=== PATIENT | female | born 1975 | race African-American/Black ===

== ENCOUNTER → 2016-11-25 | Outpatient (CLI) | payer BC ==
[~2016-11-25] MED LIST: ASP81TEC PO; GLIM4TAB PO; INDO25CA PO; INSU100I10 SQ; INSU100V6 SQ; LRT10T PO; MTF500T PO
== END ==
LOC: RAD 07:30
PROVIDERS: ATTEND Nurse Practitioner
DX: Z12.31 Encounter for screening mammogram for malignant neoplasm of breast (principal)
CPT/HCPCS: 77067

== ENCOUNTER → 2018-01-05 | Outpatient (CLI) | payer BC ==
[~2018-01-05] MED LIST changes: -INDO25CA PO; +INDO25CA15 PO
--- NOTE | 2018-01-07 13:48 | RADIOLOGY REPORT ---
NAME: STACY ROBERSON [facility] REC#: [id number] PT STATUS: REG CLI : 1975 PHYSICIAN: ROBI LR SS ADMIT DATE: 01/05/18/RAD CORRECTED Signed Date of Exam:01/05/18 CT SINUS COMPLETE WO PROCEDURE: CT sinuses without contrast TECHNIQUE: Multiple contiguous axial images were obtained through the sinuses without the use of intravenous contrast. Coronal and sagittal reformations were then performed. INDICATION: Allergic rhinitis. The frontal sinuses clear. Ethmoid air cells and sphenoid sinus are clear. Bilateral maxillary sinuses are clear. The mastoid air cells are well aerated. No mucosal thickening or air-fluid levels are seen. Ostiomeatal complexes appear patent. The upper portion of nasal septum shows some slight deviation to the right. IMPRESSION: No evidence of sinusitis. Dictated by: Dictated on workstation # [id number] Dict: 01/05/18 0853 Trans: 01/05/18 1543 [facility] [id number] Interpreted by: PONCHO WHEELER MD Electronically signed by: PONCHO WHEELER MD 01/05/18 1543 [facility]
== END ==
LOC: RAD 08:02
PROVIDERS: ATTEND Otolaryngology Facial Plastic Surgery
DX: J30.9 Allergic rhinitis, unspecified (principal)
CPT/HCPCS: 70486

== ENCOUNTER → 2018-03-15 | Outpatient (CLI) | payer BC ==
--- NOTE | 2018-03-16 20:31 | Diagnostic Imaging Report ---
EXAMINATION: Digital mammogram bilateral screening with 3D tomosynthesis. INDICATION: Screening. COMPARISON: This study was compared to the prior exam of 11/25/2016. At this time, there are no current complaints. The current study was also evaluated with A Computer Aided Detection (CAD) system. FINDINGS: There are scattered fibroglandular densities in both breasts which could obscure a lesion. Overall, there does not appear to have been any significant change when compared to the prior exam. No primary or secondary sign of malignancy is noted. 3D tomographic images fail to show any sign of malignancy. IMPRESSION: There is no radiographic evidence for malignancy. ACR BI-RADS Category 1: Negative. Result letter will be mailed to the patient. Note: At least 10% of breast cancer is not imaged by mammography. Dictated on workstation # [id number]
== END ==
LOC: RAD 08:07
PROVIDERS: ATTEND Nurse Practitioner
DX: Z12.31 Encounter for screening mammogram for malignant neoplasm of breast (principal)
CPT/HCPCS: 77067

== ENCOUNTER → 2019-03-22 | Outpatient (CLI) | payer BC ==
--- NOTE | 2019-03-27 09:29 | Diagnostic Imaging Report ---
INDICATION: Routine screening. Comparison is made with prior mammogram 03/15/2018 and 11/25/2016. 2-D and 3-D bilateral screening mammography was performed with CAD. Scattered fibroglandular densities are identified bilaterally. A nodular density in the superior left breast mid depth is seen on the left MLO view. This may be centrally located on the CC view. Additional views are recommended. Right breast is unremarkable. No suspicious calcifications are seen. Axillae are unremarkable. IMPRESSION: BI-RADS 0 Left breast density. Additional views are recommended for further evaluation. ACR BI-RADS Category 0: Incomplete. (Needs additional imaging evaluation). Result letter will be mailed to the patient. Note: At least 10% of breast cancer is not imaged by mammography. Dictated by: Dictated on workstation # [id number]
== END ==
LOC: RAD 11:10
PROVIDERS: ATTEND Nurse Practitioner
DX: Z12.31 Encounter for screening mammogram for malignant neoplasm of breast (principal); Z01.419 Encounter for gynecological examination (general) (routine) without abnormal findings; N95.2 Postmenopausal atrophic vaginitis
CPT/HCPCS: 77067

== ENCOUNTER → 2019-04-06 | Outpatient (CLI) | payer BC ==
--- NOTE | 2019-04-06 18:50 | Diagnostic Imaging Report ---
INDICATION: Abnormal mammogram. EXAMINATION: Unilateal diagnostic left breast ultrasound, limited. FINDINGS: Screening mammogram performed on 03/22/2019 noted a small nodular density in the superior aspect of the left breast. This finding does not seem as conspicuous on the diagnostic mammogram performed prior to this exam. On this exam, there are two small 5 and 3 mm avascular fairly well-circumscribed hypoechoic lesions in the 11 o'clock position of the breast, roughly 7 cm from the nipple. I suspect that these are small benign cysts. These may well correspond to the density seen on the mammogram. There is no solid mass to suggest malignancy. Even so, it may prove worthwhile to have a short-term (six month) follow-up mammogram and ultrasound exam of the left breast for continued evaluation. IMPRESSION: There is no solid mass to suggest malignancy. Recommendations as above. ACR BI-RADS Category 3: Probably benign findings. Result letter will be mailed to the patient. Note: At least 10% of breast cancer is not imaged by mammography. Dictated by: Dictated on workstation # [id number]
--- NOTE | 2019-04-07 07:14 | Diagnostic Imaging Report ---
Diagnostic left mammogram. Indication: Abnormal screening mammogram. The recent screening mammogram performed on 03/22/2019 noted a small nodular density in the superior aspect of the left breast at middle depth. This finding was best visualized on the CC view. This density is not as conspicuous on the compression MLO view and it cannot be identified on the true lateral or CC views. I suspect that this finding is related to either superimposition or to a benign process. I would recommend that ultrasound be performed for further study. Impression: Ultrasound would be recommended for further evaluation of the left breast. ACR BI-RADS Category 0: Incomplete. (Needs additional imaging evaluation). Result letter will be mailed to the patient. Note: At least 10% of breast cancer is not imaged by mammography. Dictated by: Dictated on workstation # [id number]
== END ==
LOC: RAD 13:34
PROVIDERS: ATTEND Nurse Practitioner
DX: R92.8 Other abnormal and inconclusive findings on diagnostic imaging of breast (principal)
CPT/HCPCS: 76642

== ENCOUNTER → 2023-01-05 | Outpatient (CLI) | payer OTHER, BC ==
[~2023-01-05] MED LIST changes: -INDO25CA15 PO; +INDO25CA99 PO
== END ==
LOC: CARD 09:08
PROVIDERS: ATTEND Internal Medicine Cardiovascular Disease
DX: R07.9 Chest pain, unspecified (principal)
CPT/HCPCS: 93306

== ENCOUNTER → 2023-02-08 | Outpatient (CLI) | payer OTHER, BC ==
[~2023-02-08] VITALS: Ht 162 cm; Wt 84.0 kg
[~2023-02-08] MED LIST changes: +CATHETER FLUSH 10 ML SYR IVP PRN
[2023-02-08 08:57] VITALS: BP 161/93
--- NOTE | 2023-02-08 12:20 | Cardiology Stress Test Report ---
Stress Test Report Date of Procedure/Referring: Date of Procedure: Feb 08, 2023 PCP Padma Marques Aprn Admitting Physician Admitting Physician: Attending Physician: Neema Neri MD Baseline Heart Rate: 81 Baseline Blood Pressure: Blood Pressure Systolic: 161 Blood Pressure Diastolic: 93 Vital Signs Date Time Temp Pulse Resp B/P (MAP) Pulse Ox O2 Delivery O2 Flow Rate FiO2 02/08/23 08:57 88 161/93 (115) Baseline Vital Signs Vital Signs Date Time Temp Pulse Resp B/P (MAP) Pulse Ox O2 Delivery O2 Flow Rate FiO2 02/08/23 08:57 88 161/93 (115) Baseline EKG: Baseline EKG: NSR Summary: After explaining the procedure and details to the patient, she signed the consent and was brought to the stress nuclear laboratory. Patient exercised on standard Julius protocol, EKG, heart rate and blood pressure were monitored continuously, resting and stress doses of radio tracer were injected, imaging was acquired and reviewed in the short axis, horizontal long axis and vertical long axis views Patient was able to exercise for a total of 7 minutes on Julius protocol, METs 8.5 Maximum heart rate 161 Maximum blood pressure 198/79 Stress EKG, Minimal nondiagnostic changes Recovery EKG, Return to baseline TID: 1.08 SSS: 3 SDS: 3 EF: 58 Conclusion: Good exercise tolerance for 7 minutes on standard Julius protocol, 8.5 METS achieving maximum heart rate of 161 return to baseline during recovery Appropriate heart rate response to exercise with hypertensive response to exercise with peak blood pressure 198/79 return to baseline during recovery Artifacts with nondiagnostic EKG changes with exercise return to baseline during recovery Breast attenuation affecting the quality of the images, there is questionable reversible ischemia involving the mid to apical anterior wall and anterolateral wall Normal left ventricular size, ejection fraction 68% CC NEEMA Hernandez APRN, MD Feb 08, 2023 12:20
== END ==
LOC: CARD 07:33
PROVIDERS: ATTEND Internal Medicine Cardiovascular Disease
DX: R07.9 Chest pain, unspecified (principal)
CPT/HCPCS: 78452; 93017

== ENCOUNTER 2023-03-03 06:58 | Day surgery (SDC) | payer OTHER, BC ==
[2023-03-03] VITALS (17 sets, daily range): BP systolic 115–161; BP diastolic 69–102
[~2023-03-03] VITALS: Ht 165.1 cm; Wt 84.1 kg
[~2023-03-03 06:58] MED LIST changes: -CATHETER FLUSH 10 ML SYR IVP PRN
[2023-03-03] MEDS ORDERED: HEParin (CATH LAB) 2,000 ML IV ONE (07:03)
[2023-03-03] MEDS ORDERED: NS IV 1000 ML 1,000 ML ONE (07:03)
[2023-03-03] MEDS ORDERED: LIDOCAINE 1% INJ 20 ML VIAL ONE (07:03)
[2023-03-03] MEDS ORDERED: NS IV 1000 ML 1,000 ML IV SCH (07:30)
[2023-03-03 07:50] LABS: HEMATOCRIT 43 % (35-52); HEMOGLOBIN 14.2 g/dL (11.5-16.0); MEAN CORPUSCULAR HEMOGLOBIN 29 pg (25-34); MEAN CORPUSCULAR HGB CONC 33 g/dL (32-36); MEAN CORPUSCULAR VOLUME 87 fL (80-99); MEAN PLATELET VOLUME 10.4 fL (9.0-12.2); PLATELET COUNT 360 10^3/uL (130-400); WHITE BLOOD COUNT 6.7 10^3/uL (4.3-11.0)
[2023-03-03 07:57] LABS: CLARITY,URINE CLEAR; COLOR,URINE YELLOW; GLUCOSE, URINE (UA) 2+ (NEGATIVE); PH,URINE 5.5 (5-9); PROTEIN,URINE 1+ (NEGATIVE)
[2023-03-03 07:58] LABS: BACTERIA,URINE TRACE /HPF; BILIRUBIN,URINE NEGATIVE (NEGATIVE); KETONES,URINE TRACE (NEGATIVE); LEUKOCYTE ESTERASE ,URINE NEGATIVE (NEGATIVE); NITRITE,URINE NEGATIVE (NEGATIVE); SQUAMOUS EPITHELIAL CELL,UR 0-2 /HPF; WBC,URINE RARE /HPF
[2023-03-03 08:01] LABS: PROTHROMBIN TIME PATIENT 13.6 SEC (12.2-14.7)
[2023-03-03 08:10] LABS: ALBUMIN 4.3 GM/DL (3.2-4.5); BILIRUBIN,TOTAL 0.3 MG/DL (0.1-1.0); CALCIUM 9.4 MG/DL (8.5-10.1); CREATININE SERUM 0.81 MG/DL (0.60-1.30); POTASSIUM 3.8 MMOL/L (3.6-5.0); TOTAL PROTEIN 7.6 GM/DL (6.4-8.2)
[2023-03-03] MEDS ORDERED: INSU100I10 SQ (08:16)
[2023-03-03] MEDS ORDERED: LEVO5TAB12 PO (08:16)
[2023-03-03] MEDS ORDERED: IBUP-30 PO (08:16)
[2023-03-03] MEDS ORDERED: DULA4.5P SQ (08:16)
[2023-03-03] MEDS ORDERED: PANT20TA18 PO (08:16)
[2023-03-03] MEDS ORDERED: CARB15DR OP (08:16)
--- NOTE | 2023-03-03 08:18 | Diagnostic Imaging Report ---
INDICATION: Cardiac disease. Compared 05/20/2015 FINDINGS: The lungs are clear. No failure, effusion or pneumothorax. IMPRESSION: Normal frontal chest Dictated by: Dictated on workstation # [id number]
--- NOTE | 2023-03-03 08:26 | Cardiac Procedure Note-CS/ASA ---
Pre-Procedure Note Pre-Op Procedure Note Date of Available H&P: Feb 08, 2023 Date H&P Reviewed: Mar 03, 2023 Time H&P Reviewed: 08:26 History & Physical: H&P Reviewed, Patient Examed, No changes noted Pre-Operative Diagnosis: CAD Moderate Sedation PreProcedure Time 08: ASA Score 3 Airway Lungs Heart ASA score ASA 1: a normal healthy patient ASA 2: a patient with a mild systemic disease (mid diabetes, controlled hypertension, obesity ASA 3: a patient with a severe systemic disease that limits activity (angina, COPD, prior Myocardial infarction) ASA 4: a patient with an incapacitating disease that is a constant threat to life (CHF, renal failure) ASA 5: a moribund patient not expected to survive 24 hrs. (ruptured aneurysm) ASA 6: a declared brain- patient whose organs are being harvested. For emergent operations, add the letter E after the classification Mallampati Classification Grade 3 Sedation Plan Analgesia, Amnesia, Plan communicated to team members, Discussed options with patient/fam, Discussed risks with patient/fam The patient is an appropriate candidate to undergo the planned procedure, sedation, and anesthesia. The patient immediately re-assessed prior to indication. NEEMA RAY MD Mar 03, 2023 08:26
[2023-03-03] MEDS ORDERED: MIDAZOLAM INJ 5 MG/5 ML VIAL ONE (08:34)
[2023-03-03] MEDS ORDERED: VERAPAMIL 5 MG/2 ML (CALAN) VIAL IV ONE (08:34)
[2023-03-03] MEDS ORDERED: fentaNYL INJECTION 100 MCG/2 ML VIAL ONE (08:34)
[2023-03-03] MEDS ORDERED: HEParin 1000 UNIT/ML (10ML VIAL) FOR BOLUS ONE (08:35)
[2023-03-03] MEDS ORDERED: NITRO DRIP 25000 MCG/D5W 250 ML IV ONE (08:35)
[2023-03-03] MEDS ORDERED: TICAGRELOR 90 MG TABLET (BRILINTA) PO ONE (09:39)
[2023-03-03] MEDS ORDERED: ASPIRIN 325 MG TABLET ONE (09:39)
[2023-03-03] MEDS ORDERED: PANTOPRAZOLE 20 MG TABLET PO PRN (09:45)
[2023-03-03] MEDS ORDERED: NON-FORMULARY MEDICATION 1 EA EA (Dulaglutide (Trulicity) 4.5 MG) SQ SCH (09:45)
--- NOTE | 2023-03-03 09:49 | Cardiac Cath Report ---
Cardiac Cath Report Physician (s)/Header Set Up Operator (s) Physician NEEMA RAY MD Pre-Procedure Diagnosis Pre-Procedure Diagnosis: CAD Post-Procedure Note Procedure Start Date: Mar 03, 2023 Name of Procedure: Left heart catheterization IFR to the LAD Stenting to the circumflex artery Stenting to the LAD Findings/Procedure Note PROCEDURE NOTE: 47-year-old lady with recurrent chest pain, had an abnormal stress test, has history of diabetes mellitus, hyperlipidemia, cardiac catheterization was advised. After explaining the procedure to the patient, all pros and cons were explained, all questions were answered. The patient signed the consent and then she was placed in the cardiac catheterization laboratory. Groin was prepped in SL fashion local anesthesia was used. Sheath placed in the right radial artery, Cresco catheter was advanced to the left ventricular cavity, pressure was measured, pullback LV to aorta was done, engaged the right coronary artery, I was unable to engage the left system, exchange the catheter and used Young left catheter and angiogram to the left coronary system was done. Patient had 95% stenosis in the distal circumflex artery and borderline 70% lesion in the LAD artery. EBU 3.5 guide was used Run-through wire was advanced to the circumflex artery and parked distally, predilatation with 2.5 x 20 mm trek balloon then Orsiro drug-eluting stent 2.5 x 18 mm deployed up to 2.6 mm with 0% residual stenosis in the circumflex artery The borderline lesion in the LAD was tested with IFR wire iFR was 0.88 Primary stenting with Orsiro 2.5 x 18 mm deployed under 14 farhan up to 2.7 mm. Angiogram showed 0% residual stenosis, IFR 0.91. At the end of the procedure the sheath was removed. FINDINGS: Hemodynamics LV 118/15, end-diastolic pressure of 15 Aorta 108/67 mean of 83 ANATOMY: Left Main is free of obstructive disease Left Anterior Descending has 70% mid LAD stenosis IFR 0.88, status post deployment of Orsiro 2.5 x 18 mm expanded to 2.7 mm with 0% residual stenosis Left Circumflex has 95% mid to distal lesion with successful balloon angioplasty and stenting using Orsiro 2.5 x 18 mm expanded to 2.65 mm with 0% residual stenosis Right Coronary Artery is codominant artery with a circumflex artery with no significant obstructive disease LV Gram was not done, pressure was measured PERCUTANEOUS INTERVENTION: LAD Pre stenosis 70%, IFR 0.88 Post Stenosis 0%, IFR 0.91 Pre YADI flow 2 Post YADI flow 3 Left circumflex artery Prestenosis 95% Post stenosis 0% Pre-YADI flow 2 Post YADI flow 3 Dominance codominance of the right coronary artery and circumflex artery CONCLUSION: Severe two-vessel coronary artery disease with severe mid LAD stenosis successful deployment of Orsiro 2.5 x 18 mm with no residual stenosis, severe mid to distal circumflex artery with deployment of Orsiro 2.5 x 18 mm with no residual stenosis Codominant circumflex and right artery system, nonobstructive disease otherwise Normal left ventricular end-diastolic pressure DISCUSSION AND RECOMMENDATION: Patient was loaded with aspirin and Brilinta, started on Lipitor 40 mg daily, pantoprazole Anesthesia Type: Conscious Sedation Estimated blood loss (mL): 20 ml Contrast Amount: 85 ml Total Radiation Dose: 621 mGy Post-Procedure Diagnosis Post-operative diagnosis: Chest pain Coronary artery disease Hypertension Hyperlipidemia NEEMA RAY MD Mar 03, 2023 09:49
[2023-03-03] MEDS ORDERED: ARTIFICIAL TEARS Ophth solution 0.4 ML UNIT DOSE OU PRN (10:15)
[2023-03-03] MEDS ORDERED: LORATADINE 10 MG TABLET PO PRN (10:30)
[2023-03-03] MEDS: NS IV 1000 ML 1,000 ML IV SCH (13:35)
[2023-03-03] MEDS ORDERED: IBUPROFEN 200 MG TABLET PO PRN (14:30)
[2023-03-03] MEDS ORDERED: ACETAMINOPHEN 500 MG TABLET PO PRN (14:45)
[2023-03-03] MEDS ORDERED: PROMETHAZINE INJ 25 MG/ML VIAL IVP PRN (15:30)
[2023-03-03] MEDS: TICAGRELOR 90 MG TABLET (BRILINTA) PO SCH (21:21)
[2023-03-04 04:24] VITALS: BP 129/84
[2023-03-04 04:45] LABS: HEMATOCRIT 40 % (35-52); HEMOGLOBIN 12.9 g/dL (11.5-16.0); MEAN CORPUSCULAR HEMOGLOBIN 29 pg (25-34); MEAN CORPUSCULAR HGB CONC 33 g/dL (32-36); MEAN CORPUSCULAR VOLUME 88 fL (80-99); MEAN PLATELET VOLUME 10.6 fL (9.0-12.2); PLATELET COUNT 351 10^3/uL (130-400); WHITE BLOOD COUNT 7.4 10^3/uL (4.3-11.0)
[2023-03-04 05:08] LABS: POTASSIUM 3.7 MMOL/L (3.6-5.0)
[2023-03-04 05:09] LABS: CALCIUM 8.7 MG/DL (8.5-10.1)
[2023-03-04 05:13] LABS: CREATININE SERUM 0.68 MG/DL (0.60-1.30)
[2023-03-04] MEDS ORDERED: TICA90TA PO (06:59)
[2023-03-04] MEDS ORDERED: PANT40TA52 PO (06:59)
[2023-03-04] MEDS ORDERED: ASPI-1238 PO (06:59)
[2023-03-04] MEDS ORDERED: ATOR40TA PO (06:59)
--- NOTE | 2023-03-04 07:00 | Discharge Inst-Post CATH ---
Discharge Inst-CATH/EP Problems Reviewed?: Yes Post Cardiac Cath/EP D/C Inst Follow Up/Plan Appointment with Dr Neri in 2 weeks <b>CARDIAC CATH/EP PROCEDURE DISCHARGE INSTRUCTIONS</b> ACTIVITY * Go Home directly and rest. * Limit activity of the leg (or wrist if it was used) for 7 days including aerobics, swimming, jogging, bicycling, etc. * Restrict stair-climbing for 7 days if possible, if not, climb up with your non-cath leg, then bring together on the same step. * Avoid lifting, pushing, pulling or excessive movement of the affected extremity for 7 days. * Customary sexual activity may be resumed after 2 days-use caution not to use a position that strains or causes pain to the affected extremity. * No driving for 24 hours. * NO SMOKING. * Avoid straining for bowel movements for 7 days. * Gentle walking on level ground is allowed. * Returning to work will depend on the type of procedure and the results. Your doctor will discuss this with you. CALL YOUR DOCTOR FOR ANY OF THE FOLLOWING: *If bleeding from the puncture site occurs- Apply gentle pressure to site with clean cloth and call your doctor or EMS. * If a knot or lump forms under the skin, increases in size, or causes pain. * If bruising appears to be worsening or moving further down your leg instead of disappearing. * Temperature above 101 F. CARE OF YOUR GROIN INCISION; * Bruising or purple discoloration of the skin near the puncture site is common. * You may shower only, no bathtub bathing for 5 days. Be careful to avoid slipping as your leg may feel stiff. * If a closure device was used on your femoral artery, please see the attached guide regarding care of the device and your leg. * Leave dressing on FOR 24 hours. CARE OF YOUR WRIST INCISION; * Bruising or purple discoloration of the skin near the puncture site is common. * You may shower. * DO NOT submerge wrist. * Leave dressing on FOR 24 hours. NEEMA NERI MD Mar 04, 2023 07:00
[2023-03-04] MEDS: NS IV 1000 ML 1,000 ML IV SCH ×2 (07:24→07:25)
[2023-03-04] MEDS: TICAGRELOR 90 MG TABLET (BRILINTA) PO SCH (08:09)
[2023-03-04 08:12] VITALS: BP 147/96
--- NOTE | 2023-03-04 08:37 | Cardiology Progress Note ---
Subjective Date Seen by Provider: Mar 04, 2023 Time Seen by Provider: 08:36 Subjective/Events-last exam Patient was seen at bedside, laying down comfortably, feeling better Objective-Cardiology Exam Last Set of Vital Signs Vital Signs 03/04/23 03/04/23 04:24 08:12 Temp 36.6 Pulse 97 Resp 18 B/P (MAP) 147/96 (113) Pulse Ox 97 O2 Delivery Room Air I&O Intake and Output 03/04/23 00:00 Intake Total 600 ml Balance 600 ml Intake Oral 600 ml # Voids 2 General: Alert, Oriented X3, Cooperative HEENT: Atraumatic, PERRLA Neck: Supple, No JVD, No Thyromegaly Lungs: Clear to Auscultation, Normal Air Movement Heart: Regular Rate, Normal S1, Normal S2, No Murmurs Abdomen: Normal Bowel Sounds, Soft, No Tenderness, No Hepatosplenomegaly, No Masses Extremities: No Clubbing, No Cyanosis, No Edema, Normal Pulses, No Tend erness/Swelling Skin: No Rashes, No Breakdown, No Significant Lesion Neuro: Normal Gait, Normal Speech, Strength at 5/5 X4 Ext, Normal Tone, Sensation Intact Psych/Mental Status: Mental Status NL, Mood NL Results Lab Laboratory Tests 03/04/23 04:24 A/P-Cardiology Admission Diagnosis Coronary artery disease Hypertension Hyperlipidemia Assessment/Plan Coronary artery disease, status post stenting to the LAD and circumflex artery Started on aspirin and Brilinta Educated about compliance with medication Hypertension, continue current medication monitor blood pressure Hyperlipidemia, started on statin Recurrent headache, educated on avoiding Advil Gastroesophageal reflux disease I will increase Protonix to 40 mg daily NEEMA RAY MD Mar 04, 2023 08:37
[2023-03-04] MEDS ORDERED: INSULIN GLARGINE HUM REC ANLOG 44 UNIT SQ SCH (09:00)
[2023-03-04] MEDS ORDERED: PANTOPRAZOLE 40 MG TABLET PO SCH (09:00)
[2023-03-04] MEDS ORDERED: inSUlin DETERMIR 1 UNIT/0.01 ML (CHARGE PER UNIT) SQ SCH (09:00)
[2023-03-04] MEDS ORDERED: [UNRECOGNIZED DRUG - OTHER] SQ SCH (09:00)
[2023-03-04] MEDS ORDERED: ASPIRIN enteric coated 81MG TABLET PO SCH (09:00)
[2023-03-04 10:32] VITALS: BP 147/96
== END 2023-03-04 10:36 | disposition home or self-care (01) ==
LOC: CATH 06:58 → EDSTATUS 09:00 → CSD 09:59 → CATH 03-04 10:36
PROVIDERS: ATTEND Internal Medicine Cardiovascular Disease
DX: I25.10 Atherosclerotic heart disease of native coronary artery without angina pectoris (principal); I10 Essential (primary) hypertension; E11.9 Type 2 diabetes mellitus without complications; K21.9 Gastro-esophageal reflux disease without esophagitis; E78.2 Mixed hyperlipidemia; E66.9 Obesity, unspecified; Z79.84 Long term (current) use of oral hypoglycemic drugs; Z68.30 Body mass index [BMI] 30.0-30.9, adult; Z79.899 Other long term (current) drug therapy
CPT/HCPCS: 36415; 71045; 80048; 80053; 80061; 81000; 85027; 85347; 85610; 85730; 87081; 93005; 93458

== ENCOUNTER 2023-03-19 19:21 | Inpatient (IN) | payer OTHER, BC ==
[~2023-03-19] VITALS: Ht 165 cm; Wt 85.0 kg
[~2023-03-19 19:21] MED LIST changes: +ASPI-1238 PO; +ATOR40TA PO; +CARB15DR OP; +DULA4.5P SQ; +IBUP-30 PO; +LEVO5TAB12 PO; +PANT20TA18 PO; +PANT40TA52 PO; +TICA90TA PO
--- NOTE | 2023-03-19 19:38 | ED Chest Pain ---
General Chief Complaint: Chest Pain Stated Complaint: CHEST PAINS Source: patient Exam Limitations: no limitations History of Present Illness Date Seen by Provider: Mar 19, 2023 Time Seen by Provider: 19:24 Initial Comments 47-year-old female presents emergency department today for chest pain. She has had pain and shortness of breath off and on since she had 2 stents placed on 03/[address] Neri. She states the pain is worsened over the last couple of days and is radiating down her left arm. It is associated with some mild shortness of breath. No fevers or chills. No cough. No abdominal pain or changes in bowel or bladder habits. She spoke with Dr. Will who is on-call for cardiology who recommend she come in for heart catheterization. All other systems reviewed and negative except documented per HPI. Voice recognition software was used to help create this chart Allergies and Home Medications Allergies Coded Allergies: BETTYANo Known Allergies (Verified Allergy, Unknown, 06/25/06) Patient Home Medication List Home Medication List Reviewed: Yes Aspirin (Aspirin EC) 81 Mg Tablet., 81 MG PO DAILY Prescribed by: NEEMA NERI on 03/04/23658 Atorvastatin Calcium (Lipitor) 40 Mg Tablet, 40 MG PO HS Prescribed by: NEEMA NERI on 03/04/23658 Carboxymethylcellulose Sodium (Refresh Tears) 0.5 % Drops, 1 DROP OP DAILY PRN for DRY EYES, (Reported) Entered as Reported by: DELONTE SMITH on 03/03/23815 Dulaglutide (Trulicity) 4.5 Mg/0.5 Ml Pen.injctr, 4.5 MG SQ WEDNESDAY, (Reported) Entered as Reported by: DELONTE SMITH on 03/03/23815 Insulin Glargine,Hum.rec.anlog (Lantus Solostar) 100 Unit/Ml (3 Ml) Insuln.pen, 44 UNIT SQ DAILY, (Reported) Entered as Reported by: DELONTE SMITH on 03/03/23815 Levocetirizine Dihydrochloride (Levocetirizine Dihydrochloride) 5 Mg Tablet, 5 MG PO BID PRN for ALLERGIES, (Reported) Entered as Reported by: DELONTE SMITH on 03/03/23815 Pantoprazole Sodium (Pantoprazole Sodium) 40 Mg Tablet.dr, 40 MG PO DAILY Prescribed by: NEEMA NERI on 03/04/2359 Ticagrelor (Brilinta) 90 Mg Tablet, 90 MG PO BID Prescribed by: NEEMA NERI on 03/04/2359 Review of Systems Review of Systems Constitutional: see HPI Past Zhawfvq-Kiglbi-Nfbwjs Hx Patient Social History Tobacco Use?: No Use of E-Cig and/or Vaping dev: No Substance use?: No Alcohol Use?: No Immunizations Up To Date Tetanus Booster (TDap): More than 5yrs PED Vaccines UTD: No Past Medical History Hysterectomy Currently Using CPAP: No Currently Using BIPAP: No High Cholesterol, Hypertension Reproductive Disorders: No [employer] History: Hysterectomy Sexually Transmitted Disease: No HIV/AIDS: No Diabetes, Insulin dep Adverse Reaction/Blood Tranf: No Family Medical History Family history: Cardiovascular disease (Pt states a lot of people have heart problems in her family, states her family has a lot of high cholesterol levels, unable to give details) 03 FATHER Hypertension 03 FATHER CAD Over 55 Years Old, Diabetes, Seizures Physical Exam Vital Signs Capillary Refill : Height, Weight, BMI Height: '" Weight: 195lbs. oz. 88.644331tz; 31.84 BMI Method:Stated General Appearance: No Apparent Distress, WD/WN HEENT: Normal ENT Inspection, Pharynx Normal Neck: Normal Inspection, Non Tender, Supple Respiratory: Chest Non Tender, Lungs Clear, Normal Breath Sounds, No Accessory Muscle Use, No Respiratory Distress Cardiovascular: Regular Rate, Rhythm, No Murmur, Normal Peripheral Pulses, Other (Hypertension) Gastrointestinal: Normal Bowel Sounds, No Organomegaly, Non Tender, Soft Extremity: Normal Capillary Refill, Normal Inspection, Non Tender, No Calf Tenderness, No Pedal Edema Neurologic/Psychiatric: Alert, Oriented x3 Skin: Normal Color, Warm/Dry Progress/Results/Core Measures Results/Orders My Orders Orders - JIMBO CAMERON DO Ekg Tracing (03/19/23 19:26) Comment Sinus rhythm with a rate of 94 bpm. Normal intervals. Normal axis. No ST or T wave abnormalities. No ectopy. No STEMI. Departure Communication (Admissions) 193: Spoke to Dr Will concrete block layer for cardiology. He is 10 minutes away and will take patient to manager lab. Team has already been called in. I have ordered heparin bolus. She is hypertensive but otherwise stable. EKG is not a STEMI. Impression Primary Impression: Chest pain Qualified Codes: R07.9 - Chest pain, unspecified Disposition: 30 STILL A PATIENT Condition: Stable Departure-Patient Inst. Referrals: SHERWIN AGUILERA APRN (PCP/Family) Primary Care Physician JIMBO CAMERON DO Mar 19, 2023 19:38
[2023-03-19 19:41] LABS: BASOPHILS % (AUTO) 0 % (0-10); EOSINOPHILS # (AUTO) 0.2 10^3/uL (0.0-0.3); EOSINOPHILS % (AUTO) 2 % (0-10); HEMATOCRIT 41 % (35-52); HEMOGLOBIN 13.4 g/dL (11.5-16.0); LYMPHOCYTES # (AUTO) 4.3 10^3/uL (1.0-4.0); LYMPHOCYTES % (AUTO) 44 % (12-44); MEAN CORPUSCULAR HEMOGLOBIN 28 pg (25-34); MEAN CORPUSCULAR HGB CONC 33 g/dL (32-36); MEAN CORPUSCULAR VOLUME 87 fL (80-99); MEAN PLATELET VOLUME 10.1 fL (9.0-12.2); MONOCYTES # (AUTO) 0.7 10^3/uL (0.0-1.0); MONOCYTES % (AUTO) 7 % (0-12); NEUTROPHILS # (AUTO) 4.6 10^3/uL (1.8-7.8); NEUTROPHILS % (AUTO) 47 % (42-75); PLATELET COUNT 392 10^3/uL (130-400); WHITE BLOOD COUNT 9.9 10^3/uL (4.3-11.0)
[2023-03-19] MEDS ORDERED: fentaNYL INJECTION 100 MCG/2 ML VIAL ONE (19:48)
[2023-03-19] MEDS ORDERED: HEParin (CATH LAB) 2,000 ML IV ONE (19:49)
[2023-03-19] MEDS ORDERED: NITRO DRIP 25000 MCG/D5W 250 ML IV ONE (19:49)
[2023-03-19] MEDS ORDERED: NS IV 1000 ML 0 ML ONE (19:49)
[2023-03-19] MEDS ORDERED: LIDOCAINE 1% INJ 20 ML VIAL ONE (19:49)
[2023-03-19] MEDS ORDERED: MIDAZOLAM INJ 5 MG/5 ML VIAL ONE (19:49)
[2023-03-19] MEDS ORDERED: HEParin 1000 UNIT/ML (10ML VIAL) FOR BOLUS ONE (19:50)
--- NOTE | 2023-03-19 19:57 | Diagnostic Imaging Report ---
INDICATION: Substernal chest pain. EXAMINATION: Portable chest at 7:33 PM. FINDINGS: Heart size and pulmonary vascularity are normal. Lungs are clear. There is no effusion or pneumothorax. IMPRESSION: Negative chest. Dictated by: Dictated on workstation # [id number]
[2023-03-19 20:00] LABS: CHLORIDE 105 MMOL/L (98-107); POTASSIUM 3.6 MMOL/L (3.6-5.0); SODIUM 139 MMOL/L (135-145)
[2023-03-19] MEDS ORDERED: ASPIRIN 81 MG CHEWABLE TABLET PO ONE (20:00)
[2023-03-19 20:01] LABS: CALCIUM 8.7 MG/DL (8.5-10.1)
[2023-03-19] MEDS ORDERED: ASPIRIN 81 MG CHEWABLE TABLET ONE (20:01)
[2023-03-19 20:02] LABS: GLUCOSE 296 MG/DL (70-105); TOTAL PROTEIN 7.5 GM/DL (6.4-8.2)
[2023-03-19 20:03] LABS: CARBON DIOXIDE 23 MMOL/L (21-32)
[2023-03-19 20:04] LABS: BILIRUBIN,TOTAL 0.2 MG/DL (0.1-1.0)
[2023-03-19 20:05] LABS: ALKALINE PHOSPHATASE 150 U/L (40-136)
[2023-03-19 20:06] LABS: CREATININE SERUM 0.84 MG/DL (0.60-1.30); GFR ESTIMATED 86
[2023-03-19 20:07] LABS: BUN/CREATININE RATIO 8
[2023-03-19 20:09] LABS: ALANINE AMINOTRANSFERASE 27 U/L (0-55); MAGNESIUM 1.8 MG/DL (1.6-2.4)
[2023-03-19] MEDS ORDERED: CLOPIDOGREL 300 MG TABLET PO ONE (20:41)
[2023-03-19] MEDS ORDERED: ONDANSETRON INJECTION 4 MG/2 ML (SDV) ONE (21:02)
[2023-03-19] MEDS ORDERED: NALOXONE 0.4 MG/ML 1 ML VIAL ONE (21:13)
[2023-03-19] MEDS ORDERED: NS IV 1000 ML 1,000 ML ONE ×3 (21:17→22:10)
[2023-03-19 21:53] LABS: BASOPHILS % (AUTO) 0 % (0-10); EOSINOPHILS # (AUTO) 0.2 10^3/uL (0.0-0.3); EOSINOPHILS % (AUTO) 2 % (0-10); HEMATOCRIT 29 % (35-52); HEMOGLOBIN 9.2 g/dL (11.5-16.0); LYMPHOCYTES # (AUTO) 4.6 10^3/uL (1.0-4.0); LYMPHOCYTES % (AUTO) 58 % (12-44); MEAN CORPUSCULAR HEMOGLOBIN 28 pg (25-34); MEAN CORPUSCULAR HGB CONC 32 g/dL (32-36); MEAN CORPUSCULAR VOLUME 88 fL (80-99); MEAN PLATELET VOLUME 10.4 fL (9.0-12.2); MONOCYTES # (AUTO) 0.3 10^3/uL (0.0-1.0); MONOCYTES % (AUTO) 4 % (0-12); NEUTROPHILS # (AUTO) 2.8 10^3/uL (1.8-7.8); NEUTROPHILS % (AUTO) 35 % (42-75); PLATELET COUNT 348 10^3/uL (130-400); WHITE BLOOD COUNT 7.9 10^3/uL (4.3-11.0)
[2023-03-19] MEDS ORDERED: ALBUMIN 5% 12.5 GM/250 ML 250 ML IV ONE ×2 (21:56→22:00)
[2023-03-19 22:02] LABS: POTASSIUM 3.6 MMOL/L (3.6-5.0)
[2023-03-19 22:03] LABS: CALCIUM 7.5 MG/DL (8.5-10.1)
[2023-03-19 22:07] LABS: CREATININE SERUM 0.84 MG/DL (0.60-1.30)
--- NOTE | 2023-03-19 22:13 | Cardiac Cath Report ---
Cardiac Cath Report Physician (s)/Timber Management Specialist (s) Physician DEV TAPIA MD Timber Management Specialist (s) hot plate plywood press laborer nursing staff Pre-Procedure Diagnosis Pre-Procedure Diagnosis: CAD, unstable angina class III-IV Post-Procedure Note Procedure Start Date: Mar 19, 2023 Procedure Start Time: 19:50 Name of Procedure: Coronary angiography, iFR and PCI x1 JENNIFER Findings/Procedure Note Selective coronary angiography of left coronary system performed jayesh jimenez armas severe classical angina with known history of CAD and recent PCI with findings in summary LM: patent with no sig disease LAD: prior mLAD stent with distal outflow of stent with iFR positive 0.83 and YADI III flow. PCI x1 JENNIFER performed to mLAD-dLAD with excellent angiographic results LCx: prior dLCx stent widely patent woith YADI III flow Anesthesia Type: Conscious Sedation Estimated blood loss (mL): 0 Contrast Amount: 90 cc Post-Procedure Diagnosis Post-operative diagnosis: severe single vessel mLAD stenosis s/p successfull PCI x1 JENNIFER (1) Coronary artery disease with unstable angina pectoris Assessment & Plan: Unstable angina class III-IV Plan: status post PCI x1 JENNIFER mLAD with good results Loaded with Aspirin pre PCI and Plavix 600 mg post PCI Continue with Plavix 75 mg qd and aspirin 81 mg qd alongside statin Continue home CV meds Monitor on ICU overnight post PCI Monitor H/H as needed , keep Hg> 8gm/dl PRBC as needed to keep at goal Right groin access site closed with suture based closure device and area soft , clean with good distal pulses palpable Goal MAP>65 mmhg , monitor urine output Will follow in AM (2) Chest pain Qualifiers: Qualified Codes: R07.9 - Chest pain, unspecified (3) Abnormal stress test (4) Poorly controlled diabetes mellitus DEV TAPIA MD Mar 19, 2023 22:13
[2023-03-19] MEDS ORDERED: PHENYLEPHRINE INJ 10 MG/ML (FOR PYXIS KITS ONLY) ONE (22:22)
[2023-03-20] MEDS ORDERED: NS IV 500 ML 500 ML IV PRN (00:15)
[2023-03-20 04:14] LABS: BASOPHILS % (AUTO) 0 % (0-10); EOSINOPHILS % (AUTO) 0 % (0-10); HEMATOCRIT 25 % (35-52); HEMOGLOBIN 8.1 g/dL (11.5-16.0); LYMPHOCYTES # (AUTO) 1.6 10^3/uL (1.0-4.0); LYMPHOCYTES % (AUTO) 10 % (12-44); MEAN CORPUSCULAR HEMOGLOBIN 28 pg (25-34); MEAN CORPUSCULAR HGB CONC 32 g/dL (32-36); MEAN CORPUSCULAR VOLUME 88 fL (80-99); MEAN PLATELET VOLUME 10.5 fL (9.0-12.2); MONOCYTES # (AUTO) 0.6 10^3/uL (0.0-1.0); MONOCYTES % (AUTO) 4 % (0-12); NEUTROPHILS # (AUTO) 13.2 10^3/uL (1.8-7.8); NEUTROPHILS % (AUTO) 84 % (42-75); PLATELET COUNT 348 10^3/uL (130-400); WHITE BLOOD COUNT 15.7 10^3/uL (4.3-11.0)
[2023-03-20 04:41] LABS: ALBUMIN 3.4 GM/DL (3.2-4.5); BILIRUBIN,TOTAL 0.2 MG/DL (0.1-1.0); CALCIUM 7.7 MG/DL (8.5-10.1); CREATININE SERUM 0.88 MG/DL (0.60-1.30); MAGNESIUM 1.6 MG/DL (1.6-2.4); PHOSPHORUS 3.3 MG/DL (2.3-4.7); POTASSIUM 4.2 MMOL/L (3.6-5.0); TOTAL PROTEIN 5.5 GM/DL (6.4-8.2)
[2023-03-20 05:11] LABS: ATYPICAL LYMPHOCYTES 1 %; LYMPHOCYTES % (MANUAL) 15 %; MONOCYTES % (MANUAL) 1 %; NEUTROPHILS % (MANUAL) 83 %; RBC MORPH NORMAL
[2023-03-20] MEDS: POTASSIUM CHLORIDE 20 MEQ TABLET PO SCH (06:00)
[2023-03-20] MEDS: MAGNESIUM 1 GM/100 ML IVPB 100 ML IV SCH ×4 (06:00→08:49)
[2023-03-20] MEDS: POTASSIUM CL 10MEQ/50ML IVPB 50 ML IV SCH (06:00)
[2023-03-20] MEDS: inSUlin ASPART 1 UNIT/0.01 ML (PER UNIT) SC ONE ×2 (07:45→07:53)
--- NOTE | 2023-03-20 09:26 | Tele-ICU Progress Note ---
Progress Note video rounds completed 47 y/o female admite senait HURTADO went to CCL: RESULTS: status post PCI x1 JENNIFER mLAD with good results Loaded with Aspirin pre PCI and Plavix 600 mg post PCI Continue with Plavix 75 mg qd and aspirin 81 mg qd alongside statin Continue home CV meds Monitor on ICU overnight post PCI Monitor H/H as needed , keep Hg> 8gm/dl PRBC as needed to keep at goal Right groin access site closed with suture based closure device and area soft , clean with good distal pulses palpable Goal MAP>65 mmhg , monitor urine output IMP: CAD PLAN: as per cardiology Time spent in review 15 minutes I am remotely monitoring this patient via video and telehealth. Review is based upon review of medical records and discussion wit the bedside RNs Focused Exam Height, Weight, BMI Height: '" Weight: 195lbs. oz. 88.824905vj; 31.22 BMI Method:Stated Labs Laboratory Tests 03/19/23 19:33 03/19/23 21:35 03/20/23 04:06 Results Results/Procedures Labs Laboratory Tests 03/19/23 19:33 03/19/23 21:35 03/20/23 04:06 Patient resulted labs reviewed. Results Labs Labs Laboratory Tests 03/19/23 19:33: White Blood Count 9.9, Red Blood Count 4.75, Hemoglobin 13.4, Hematocrit 41, Mean Corpuscular Volume 87, Mean Corpuscular Hemoglobin 28, Mean Corpuscular Hemoglobin Concent 33, Red Cell Distribution Width 11.6, Platelet Count 392, Mean Platelet Volume 10.1, Immature Granulocyte % (Auto) 1, Neutrophils (%) (Auto) 47, Lymphocytes (%) (Auto) 44, Monocytes (%) (Auto) 7, Eosinophils (%) (Auto) 2, Basophils (%) (Auto) 0, Neutrophils # (Auto) 4.6, Lymphocytes # (Auto) 4.3H, Monocytes # (Auto) 0.7, Eosinophils # (Auto) 0.2, Basophils # (Auto) 0.0, Immature Granulocyte # (Auto) 0.1, Sodium Level 139, Potassium Level 3.6, Chloride Level 105, Carbon Dioxide Level 23, Anion Gap 11, Blood Urea Nitrogen 7, Creatinine 0.84, Estimat Glomerular Filtration Rate 86, BUN/Creatinine Ratio 8, Glucose Level 296H, Calcium Level 8.7, Corrected Calcium 8.7, Magnesium Level 1.8, Total Bilirubin 0.2, Aspartate Amino Transf (AST/SGOT) 15, Alanine Aminotr ansferase (ALT/SGPT) 27, Alkaline Phosphatase 150H, Troponin I < 0.028, Total P rotein 7.5, Albumin 4.0 03/19/23 21:35: White Blood Count 7.9, Red Blood Count 3.26L, Hemoglobin 9.2#L, Hematocrit 29L, Mean Corpuscular Volume 88, Mean Corpuscular Hemoglobin 28, Mean Corpuscular Hemoglobin Concent 32, Red Cell Distribution Width 11.6, Platelet Count 348, Mean Platelet Volume 10.4, Immature Granulocyte % (Auto) 1, Neutrophils (%) (Auto) 35L, Lymphocytes (%) (Auto) 58H, Monocytes (%) (Auto) 4, Eosinophils (%) (Auto) 2, Basophils (%) (Auto) 0, Neutrophils # (Auto) 2.8, Lymphocytes # (Auto) 4.6H, Monocytes # (Auto) 0.3, Eosinophils # (Auto) 0.2, Basophils # (Auto) 0.0, Immature Granulocyte # (Auto) 0.1, Sodium Level 136, Potassium Level 3.6, Chloride Level 108H, Carbon Dioxide Level 20L, Anion Gap 8, Blood Urea Nitrogen 7, Creatinine 0.84, Estimat Glomerular Filtration Rate 86, BUN/Creatinine Ratio 8, Glucose Level 336H, Calcium Level 7.5L 03/20/23 04:06: White Blood Count 15.7H, Red Blood Count 2.86L, Hemoglobin 8.1L, Hematocrit 25L, Mean Corpuscular Volume 88, Mean Corpuscular Hemoglobin 28, Mean Corpuscular Hemoglobin Concent 32, Red Cell Distribution Width 11.9, Platelet Count 348, Mean Platelet Volume 10.5, Immature Granulocyte % (Auto) 2, Neutrophils (%) (Auto) 84H, Lymphocytes (%) (Auto) 10L, Monocytes (%) (Auto) 4, Eosinophils (%) (Auto) 0, Basophils (%) (Auto) 0, Neutrophils # (Auto) 13.2H, Lymphocytes # (Auto) 1.6, Monocytes # (Auto) 0.6, Eosinophils # (Auto) 0.0, Basophils # (Auto) 0.0, Immature Granulocyte # (Auto) 0.3H, Sodium Level 139, Potassium Level 4.2, Chloride Level 110H, Carbon Dioxide Level 19L, Anion Gap 10, Blood Urea Nitrogen 9, Creatinine 0.88, Estimat Glomerular Filtration Rate 82, BUN/Creatinine Ratio 10, Glucose Level 348H, Calcium Level 7.7L, Corrected Calcium 8.2L, Magnesium Level 1.6, Total Bilirubin 0.2, Aspartate Amino Transf (AST/SGOT) 23, Alanine Aminotransferase (ALT/SGPT) 19, Alkaline Phosphatase 93, Total Protein 5.5L, Albumin 3.4, Neutrophils % (Manual) 83, Lymphocytes % (Manual) 15, Monocytes % (Manual) 1, Atypical Lymphocytes 1, Blood Morphology Comment NORMAL, Phosphorus Level 3.3 SEFERINO DE LA CRUZ MD Mar 20, 2023 09:26
--- NOTE | 2023-03-20 10:12 | Tele-ICU Progress Note ---
Progress Note Blood sugars running in the 300s On SSI coverage but may need tighter regimen. Hgb noted to be drifting down since cath from 13.4 to 9.2 to 8.1 raising concern fro retroperitoneal hematoma following cath Focused Exam Height, Weight, BMI Height: '" Weight: 195lbs. oz. 88.652467kt; 31.22 BMI Method:Stated Labs Laboratory Tests 03/19/23 19:33 03/19/23 21:35 03/20/23 04:06 SEFERINO DE LA CRUZ MD Mar 20, 2023 10:12
--- NOTE | 2023-03-20 10:29 | Tele-ICU Progress Note ---
Progress Note spoke with bedside RN who spoke with cardiology Plan is for 1 unit PRBC and if Hgb still trending down to get CT abd/pelvis Focused Exam Height, Weight, BMI Height: '" Weight: 195lbs. oz. 88.708545yy; 31.22 BMI Method:Stated SEFERINO DE LA CRUZ MD Mar 20, 2023 10:28
[2023-03-20] MEDS ORDERED: NS IV 500 ML 500 ML IV SCH (10:30)
[2023-03-20] MEDS: inSUlin ASPART 1 UNIT/0.01 ML (PER UNIT) SC SCH ×2 (11:08→16:12)
[2023-03-20 12:34] VITALS: BP 101/67
--- NOTE | 2023-03-20 13:00 | Consultation-Cardiology ---
HPI-Cardiology Cardiology Consultation: Date of Consultation 03/20/23 Date of Admission Attending Physician Padma Marques Aprn Admitting Physician Admitting Physician: Carmelo Will MD Attending Physician: Carmelo Will MD Consulting Physician CARMELO WILL MD HPI: Time Seen by a Provider: 10:10 Chief Complaint: progressive severe angina 47 year old female with prior history of CAD and PCI to mLAD and dLCx this past Mar 03 presenting to the ED with complaints of ever since last cath having worsening severe chest pain with sensation of elefant seating on chest associa tavo with progressive and worsening SOB . Her ECG with non specific changes . Clinically concerning as she described over course of weeks worsening typical cardiac chest pain radiating to the left neck, jaw and left arm . She was taken tot he cardiac catheterization for evaluation and management last night and found with mLAD on distal edge of prior stent narrowing of 80% with positive iFR measurement and ultimately with PCI x1 JENNIFER to mLAD/dLAD with good results. Overnight she has been monitored in ICU and hemodynamically stable with no pain complaints. Hemoglobin decreased ever since procedure and is being monitored and transfused. Review of Systems-Cardiology Review of Systems Eyes: No As described under HPI, No no symptoms reported, No blindness, No blurred vision, No contact lenses, No drainage, No decreased acuity, No foreign body sensation, No glasses, No inflammation, No pain, No photophobia, No previous injury, No shadows, No tunnel vision, No other, No vision change Ears/Nose/Throat: No As described under HPI, No no symptoms reported, No chronic hearing loss, No epistaxis, No ear discharge, No ear pain, No loose teeth, No mouth pain, No mouth swelling, No nasal drainage, No nose pain, No recent hearing loss, No throat pain, No throat swelling, No ulcerations, No other Respiratory: shortness of breath Cardiovascular: chest pain Gastrointestinal: nausea All Other Systems Reviewed Negative Unless Noted: Yes [id number] Hx Patient Social History Alcohol Use?: Unable to obtain Pt feels they are or have been: Unable to obtain Immunizations Up To Date Tetanus Booster (TDap): More than 5yrs Past Medical History PMH As described under Assessment. Family Medical History Family History: Family history: Cardiovascular disease (Pt states a lot of people have heart problems in her family, states her family has a lot of high cholesterol levels, unable to give details) 03 FATHER Hypertension 03 FATHER Allergies and Home Medications Allergies Coded Allergies: NKANo Known Allergies (Verified Allergy, Unknown, 06/25/06) Patient Home Medication List Home Medication List Reviewed: Yes Aspirin (Aspirin EC) 81 Mg Tablet.dr, 81 MG PO DAILY Prescribed by: NEEMA RAY on 03/04/23658 Atorvastatin Calcium (Lipitor) 40 Mg Tablet, 40 MG PO HS Prescribed by: NEEMA RAY on 03/04/23658 Carboxymethylcellulose Sodium (Refresh Tears) 0.5 % Drops, 1 DROP OP DAILY PRN for DRY EYES, (Reported) Entered as Reported by: DELONTE SMITH on 03/03/23815 Dulaglutide (Trulicity) 4.5 Mg/0.5 Ml Pen.injctr, 4.5 MG SQ WEDNESDAY, (Reported) Entered as Reported by: DELONTE SMITH on 03/03/23815 Insulin Glargine,Hum.rec.anlog (Lantus Solostar) 100 Unit/Ml (3 Ml) Insuln.pen, 44 UNIT SQ DAILY, (Reported) Entered as Reported by: DELONTE SMITH on 03/03/23815 Levocetirizine Dihydrochloride (Levocetirizine Dihydrochloride) 5 Mg Tablet, 5 MG PO BID PRN for ALLERGIES, (Reported) Entered as Reported by: DELONTE SMITH on 03/03/23815 Pantoprazole Sodium (Pantoprazole Sodium) 40 Mg Tablet.dr, 40 MG PO DAILY Prescribed by: NEEMA RAY on 03/04/23658 Ticagrelor (Brilinta) 90 Mg Tablet, 90 MG PO BID Prescribed by: NEEMA RAY on 03/04/23658 Exam Vital Signs Vital Signs Date Time Temp Pulse Resp B/P (MAP) Pulse Ox O2 Delivery O2 Flow Rate FiO2 03/20/23 12:34 37.3 115 19 101/67 95 Room Air Physical Exam normocefalic, atraumatic neck without JVD , supple Normal respiratory sounds Heart sounds without murmurs, gallops, rubs . S1,S2 abdomen soft non tender , right groin access site bening with minimal bruising . No sig hematoma on flanks or back Peripheral pulses present and intact Labs Laboratory Tests Test 03/19/23 19:33 03/19/23 21:35 03/20/23 04:06 Range/Units White Blood Count 9.9 7.9 15.7 H 4.3-11.0 10^3/uL Red Blood Count 4.75 3.26 L 2.86 L 3.80-5.11 10^6/uL Hemoglobin 13.4 9.2 #L 8.1 L 11.5-16.0 g/dL Hematocrit 41 29 L 25 L 35-52 % Mean Corpuscular Volume 87 88 88 80-99 fL Mean Corpuscular Hemoglobin 28 28 28 25-34 pg Mean Corpuscular Hemoglobin Concent 33 32 32 32-36 g/dL Red Cell Distribution Width 11.6 11.6 11.9 10.0-14.5 % Platelet Count 392 348 348 130-400 10^3/uL Mean Platelet Volume 10.1 10.4 10.5 9.0-12.2 fL Immature Granulocyte % (Auto) 1 1 2 % Neutrophils (%) (Auto) 47 35 L 84 H 42-75 % Lymphocytes (%) (Auto) 44 58 H 10 L 12-44 % Monocytes (%) (Auto) 7 4 4 0-12 % Eosinophils (%) (Auto) 2 2 0 0-10 % Basophils (%) (Auto) 0 0 0 0-10 % Neutrophils # (Auto) 4.6 2.8 13.2 H 1.8-7.8 10^3/uL Lymphocytes # (Auto) 4.3 H 4.6 H 1.6 1.0-4.0 10^3/uL Monocytes # (Auto) 0.7 0.3 0.6 0.0-1.0 10^3/uL Eosinophils # (Auto) 0.2 0.2 0.0 0.0-0.3 10^3/uL Basophils # (Auto) 0.0 0.0 0.0 0.0-0.1 10^3/uL Immature Granulocyte # (Auto) 0.1 0.1 0.3 H 0.0-0.1 10^3/uL Sodium Level 139 136 139 135-145 MMOL/L Potassium Level 3.6 3.6 4.2 3.6-5.0 MMOL/L Chloride Level 105 108 H 110 H 98-107 MMOL/L Carbon Dioxide Level 23 20 L 19 L 21-32 MMOL/L Anion Gap 11 8 10 5-14 MMOL/L Blood Urea Nitrogen 7 7 9 7-18 MG/DL Creatinine 0.84 0.84 0.88 0.60-1.30 MG/DL Estimat Glomerular Filtration Rate 86 86 82 BUN/Creatinine Ratio 8 8 10 Glucose Level 296 H 336 H 348 H 70-105 MG/DL Calcium Level 8.7 7.5 L 7.7 L 8.5-10.1 MG/DL Corrected Calcium 8.7 8.2 L 8.5-10.1 MG/DL Magnesium Level 1.8 1.6 1.6-2.4 MG/DL Total Bilirubin 0.2 0.2 0.1-1.0 MG/DL Aspartate Amino Transf (AST/SGOT) 15 23 5-34 U/L Alanine Aminotransferase (ALT/SGPT) 27 19 0-55 U/L Alkaline Phosphatase 150 H 93 40-136 U/L Troponin I < 0.028 <0.028 NG/ML Total Protein 7.5 5.5 L 6.4-8.2 GM/DL Albumin 4.0 3.4 3.2-4.5 GM/DL Neutrophils % (Manual) 83 % Lymphocytes % (Manual) 15 % Monocytes % (Manual) 1 % Atypical Lymphocytes 1 % Blood Morphology Comment NORMAL Phosphorus Level 3.3 2.3-4.7 MG/DL Radiology reviewed ECG Impression ECG Initial ECG Impression Date: Mar 20, 2023 Initial ECG Rhythm: Normal Sinus Initial ECG Intervals: Normal Initial ECG Impression: Nonspecific Changes Initial ECG Comparisson: No Previous ECG Available Diagnosis/Problems Diagnosis/Problems (1) Coronary artery disease with unstable angina pectoris Assessment & Plan: Unstable angina class III-IV Plan: status post PCI x1 JENNIFER mLAD with good results Loaded with Aspirin pre PCI and Plavix 600 mg post PCI Continue with Plavix 75 mg qd and aspirin 81 mg qd alongside statin Continue home CV meds Monitor on ICU overnight post PCI Monitor H/H as needed , keep Hg> 8gm/dl PRBC as needed to keep at goal Right groin access site closed with suture based closure device and area soft , clean with good distal pulses palpable Goal MAP>65 mmhg , monitor urine output Will follow in AM (2) Chest pain Status: Acute (3) Abnormal stress test (4) Poorly controlled diabetes mellitus Status: Acute A/P-Cardiology Assessment/Admission Diagnosis CAD with unstable angina class III-IV Uncontrolled DM Plan Continue with aspirin 81 mg qd Discontinue home Brillinta and instead keep on Plavix 75 mg qd alongside aspirin Statin, BB and TERRELL-I as tolerated As hg noted to drop will receive one unit PRBC, then will repeat CBC in 5-6 hrs . If no appropriate response to PRBC transfusion in next CBC would consider then CT abdomen, pelvis to rule out bleeding DM insulin sliding scale protocol Will continue to follow Problem Qualifiers (1) Chest pain: Chest pain type: unspecified Qualified Codes: R07.9 - Chest pain, unspecified CARMELO WILL MD Mar 20, 2023 13:00
[2023-03-20 13:07] VITALS: BP 100/68
[2023-03-20 14:46] VITALS: BP 107/71
[2023-03-20] MEDS ORDERED: CLOPIDOGREL 75 MG TABLET PO SCH ×2 (17:15→23:00)
[2023-03-20 18:36] LABS: HEMOGLOBIN 9.2 g/dL (11.5-16.0)
[2023-03-20 18:43] LABS: POTASSIUM 3.6 MMOL/L (3.6-5.0)
[2023-03-20 18:44] LABS: CALCIUM 7.9 MG/DL (8.5-10.1)
[2023-03-20 18:48] LABS: CREATININE SERUM 0.75 MG/DL (0.60-1.30)
[2023-03-21 04:49] LABS: BASOPHILS % (AUTO) 0 % (0-10); EOSINOPHILS # (AUTO) 0.1 10^3/uL (0.0-0.3); EOSINOPHILS % (AUTO) 1 % (0-10); HEMATOCRIT 25 % (35-52); HEMOGLOBIN 8.2 g/dL (11.5-16.0); LYMPHOCYTES % (AUTO) 32 % (12-44); MEAN CORPUSCULAR HEMOGLOBIN 29 pg (25-34); MEAN CORPUSCULAR HGB CONC 33 g/dL (32-36); MEAN CORPUSCULAR VOLUME 88 fL (80-99); MEAN PLATELET VOLUME 10.3 fL (9.0-12.2); MONOCYTES % (AUTO) 8 % (0-12); NEUTROPHILS # (AUTO) 7.4 10^3/uL (1.8-7.8); NEUTROPHILS % (AUTO) 59 % (42-75); PLATELET COUNT 265 10^3/uL (130-400); WHITE BLOOD COUNT 12.5 10^3/uL (4.3-11.0)
[2023-03-21 05:21] LABS: ALBUMIN 3.3 GM/DL (3.2-4.5); BILIRUBIN,TOTAL 0.3 MG/DL (0.1-1.0); CREATININE SERUM 0.68 MG/DL (0.60-1.30); MAGNESIUM 2.1 MG/DL (1.6-2.4); PHOSPHORUS 2.2 MG/DL (2.3-4.7); POTASSIUM 3.4 MMOL/L (3.6-5.0); TOTAL PROTEIN 5.5 GM/DL (6.4-8.2)
[2023-03-21] MEDS: POTASSIUM CL 10MEQ/50ML IVPB 50 ML IV SCH (06:38)
[2023-03-21] MEDS: MAGNESIUM 1 GM/100 ML IVPB 100 ML IV SCH (06:38)
[2023-03-21] MEDS: POTASSIUM CHLORIDE 20 MEQ TABLET PO SCH (06:38)
[2023-03-21] MEDS ORDERED: CLOPIDOGREL 75 MG TABLET PO SCH (09:00)
[2023-03-21] MEDS ORDERED: ASPIRIN 81 MG CHEWABLE TABLET PO SCH (09:00)
[2023-03-21] MEDS ORDERED: ATROPINE 1 MG/10 ML EMERGENCY SYRINGE INJ ONE (09:35)
--- NOTE | 2023-03-21 10:01 | Tele-ICU Progress Note ---
Subjective Date Seen by a Provider: Mar 21, 2023 Time Seen by a Provider: 10:01 Subjective/Events-last exam (Tele-ICU Physician , Progress Note ) Service provided via interactive audio and video telecommunications E-CARE system to a patient admitted to ICU bed in [facility]. Patient is seen today due to persistent need of ICU care Available chart/ vitals / labs / Images reviewed Video assessment done using teleICU camera, rest of exam as per RN Discussed with RN Events overnight : Afebrile hemodynamically stable Respiratory - I/O = Drips: Press rs- no Hospital course: (03/19) 47yr old female admitted with chest pain radiating down her left arm s/p PTCA w/JENNIFER x 1 to the LAD (03/20) Significant drop in Hgb and Blood sugar elevated and bicarb dropping. Refused hospital insulin/ bringing insulin from home. Industrial Refrigeration Mechanic giving PRBC then if Hgb cont to trend down will need CT to r/o retroperitoneal hematoma (03.20) Post transfusion HgB 9.2 A/P CAD -status post PCI x1 JENNIFER mLAD with good results Aspirin - Plavix Anemia - new - ? etiology - Hb 11--> 8 - might need GI w/up since will be opn plavix - as per bedside MDs planning DM - better controlled now - follow Plans in collaboration with bedside consultants and IM MDs. Discussed with RN to reach out if any questions or concerns Case and care daily discussed on multidisciplinary rounds ( RN, PharmD, Structural Technician , Respiratory Therapy, cloth printing utility worker ) A total of 10 minutes of critical care time was devoted to this patient today, required to treat and/or prevent further deterioration of critical care condition ( as above ) . I am remotely monitoring this patient from another state. I am unable to do the bedside exam, and history/physical and pertinent information is taken from other notes in the computer and bedside staff. Sepsis Event Evaluation Height, Weight, BMI Height: '" Weight: 195lbs. oz. 88.948850lv; 31.22 BMI Method:Stated Exam Exam Patient acknowledged, consented, and participated in this virtual visit which was conducted using real time audio/video Vital Signs Date Time Temp Pulse Resp B/P (MAP) Pulse Ox O2 Delivery O2 Flow Rate FiO2 03/21/23 09:00 117 18 96/68 (76) 96 Room Air 03/21/23 08:46 36.9 Room Air 03/21/23 08:00 95 Room Air 03/21/23 08:00 111 132/76 (92) 95 Nasal Cannula 2.00 03/21/23 07:00 104 03/21/23 07:00 107 14 119/67 (91) Nasal Cannula 2.00 03/21/23 06:45 Nasal Cannula 2.00 03/21/23 06:00 105 19 117/68 (84) 89 Room Air 03/21/23 05:00 104 15 109/74 (86) 89 Room Air 03/21/23 04:00 92 Room Air 03/21/23 04:00 104 17 121/70 (87) 91 Room Air 03/21/23 04:00 36.7 03/21/23 03:00 103 18 116/64 (81) 91 Room Air 03/21/23 02:00 104 11 110/65 (80) 96 Room Air 03/21/23 01:00 106 17 110/65 (80) 90 Room Air 03/21/23 00:54 107 03/21/23 00:00 105 17 113/65 (81) 91 Room Air 03/21/23 00:00 91 Room Air 03/20/23 23:00 104 16 115/68 (84) 92 Room Air 03/20/23 22:00 109 16 114/73 (87) 92 Room Air 03/20/23 21:00 111 19 121/69 (86) 93 Room Air 03/20/23 20:00 111 17 109/67 (81) 92 Room Air 03/20/23 20:00 92 Room Air 03/20/23 19:53 36.8 03/20/23 19:00 111 03/20/23 19:00 109 20 114/64 (81) 93 Room Air 03/20/23 18:00 112 17 105/72 (82) 94 Room Air 03/20/23 17:00 111 20 102/71 (87) 94 Room Air 03/20/23 16:24 37.2 03/20/23 16:00 112 20 107/66 (78) 94 Room Air 03/20/23 16:00 94 Room Air 03/20/23 15:00 117 16 103/64 (78) 97 Room Air 03/20/23 14:46 37.9 120 19 107/71 95 03/20/23 14:00 122 19 104/63 (81) 95 Room Air 03/20/23 13:07 37.6 125 20 100/68 97 Room Air 03/20/23 13:00 118 20 101/65 (77) 99 Room Air 03/20/23 12:34 37.3 115 19 101/67 95 Room Air 03/20/23 12:26 116 03/20/23 12:22 37.4 Room Air 03/20/23 12:00 95 Room Air 03/20/23 12:00 114 19 103/66 (80) 93 Room Air 03/20/23 11:00 121 19 94/63 (73) 95 Room Air I & O 03/21/23 07:00 Intake Total 2500 ml Output Total 450 ml Balance 2050 ml Height & Weight Height: '" Weight: 195lbs. oz. 88.352409cm; 31.22 BMI Method:Stated General Appearance: No Apparent Distress, WD/WN HEENT: Normal ENT Inspection, Pharynx Normal Neck: Normal Inspection, Non Tender, Supple Respiratory: Chest Non Tender, Lungs Clear, Normal Breath Sounds, No Accessory Muscle Use, No Respiratory Distress Cardiovascular: Regular Rate, Rhythm, No Murmur, Normal Peripheral Pulses, Other (Hypertension) Extremity: Normal Capillary Refill, Normal Inspection, Non Tender, No Calf Tenderness, No Pedal Edema Neurologic/Psychiatric: Alert, Oriented x3 Skin: Normal Color, Warm/Dry Results Lab Laboratory Tests 03/19/23 19:33 03/19/23 21:35 03/20/23 04:06 03/20/23 18:26 03/21/23 04:15 Assessment/Plan Assessment/Plan 1 PATRICA PECK MD Mar 21, 2023 10:01
[2023-03-21 10:20] LABS: HEMOGLOBIN 8.5 g/dL (11.5-16.0)
[2023-03-21] MEDS ORDERED: NS IV 500 ML 500 ML IV SCH (10:45)
[2023-03-21 11:25] VITALS: BP 131/84
[2023-03-21 11:41] VITALS: BP 129/76
--- NOTE | 2023-03-21 12:16 | Progress Note ---
Standard Progress Note Progress Notes/Assess & Plan Date Seen by a Provider: Mar 21, 2023 Time Seen by a Provider: 08:30 Progress/Assessment & Plan Patient with resolved chest pain, feels well. Was able to get out of bed and walk to the bathroom . No orthostasis or lightheadeness. right femoral access site bening . H/H stable > 8 gm/dl Assessment: Unstable angina class III-IV Plan: Continue with Aspirin 81 mg qd, Plavix 75 mg qd , statin Continue home meds on DC with exception of Brillinta ( was exchanged for plavix ) One unit PRBC to be given and patient plan for discharge afterwards with outpatient follow up Final Diagnosis progressive severe angina CAD with mLAD severe stenosis DEV TAPIA MD Mar 21, 2023 12:16
[2023-03-21] MEDS ORDERED: CLOP-31 PO (12:48)
[2023-03-21 14:14] VITALS: BP 132/77
[2023-03-21 15:05] VITALS: BP 132/77
== END 2023-03-21 14:53 | disposition home or self-care (01) | DRG 322 ==
LOC: EDUNIT# 19:21 → ER 19:24 → SDC 20:05 → ICU 21:39
PROVIDERS: ADMIT Internal Medicine Interventional Cardiology; ATTEND Internal Medicine Interventional Cardiology
PROC: 027034Z Dilation of Coronary Artery, One Artery with Drug-eluting Intraluminal Device, Percutaneous Approach (ICD-10-PCS; principal; 2023-03-19)
PROC: B2111ZZ Fluoroscopy of Multiple Coronary Arteries using Low Osmolar Contrast (ICD-10-PCS; 2023-03-19)
PROC: 4A033BC Measurement of Arterial Pressure, Coronary, Percutaneous Approach (ICD-10-PCS; 2023-03-19)
DX: I25.110 Atherosclerotic heart disease of native coronary artery with unstable angina pectoris (principal); D64.9 Anemia, unspecified; E11.65 Type 2 diabetes mellitus with hyperglycemia; Z79.82 Long term (current) use of aspirin; Z79.899 Other long term (current) drug therapy
CPT/HCPCS: 36415; 71045; 80048; 80053; 83735; 84100; 84484; 85007; 85014; 85018; 85025; 85027; 85347; 86850; 86900; 86901; 86920; 87081; 93005; 93041; 93454

== ENCOUNTER → 2023-03-26 | Outpatient (CLI) | payer OTHER, BC ==
[~2023-03-26] MED LIST changes: +CLOP-31 PO
--- NOTE | 2023-03-26 10:29 | Diagnostic Imaging Report ---
PROCEDURE: CT abdomen and pelvis without contrast. TECHNIQUE: Multiple contiguous axial images were obtained through the abdomen and pelvis without the use of intravenous contrast. Auto Exposure Controls were utilized during the CT exam to meet ALARA standards for radiation dose reduction. INDICATION: History of heart catheterization, complaining of right groin pain and abdominal pain. No prior studies are available for comparison. Lung bases demonstrate some scarring or atelectasis in the right lower lobe. There is a small pericardial effusion or pericardial thickening. No significant pleural effusion is identified. The liver and gallbladder are unremarkable. There is no biliary duct dilatation. The pancreas and spleen are unremarkable. No adrenal mass is detected. No renal calculi or hydronephrosis is detected. Aorta is nonaneurysmal. There appears to be some high density in the retroperitoneum on the right side at the level of the right kidney extending inferiorly into the pelvis consistent with retroperitoneal hemorrhage. This is a moderate in size. There is inflammatory stranding in the pelvis. Bowel loops are nonobstructed. Bladder is decompressed. Uterus appears to be surgically absent. IMPRESSION: 1. Small pericardial effusion or pericardial thickening. 2. High density in the right-sided retroperitoneum consistent with retroperitoneal hemorrhage. CT with contrast could be performed to evaluate for active hemorrhage if clinically indicated. No other significant abnormalities detected. Dictated by: Dictated on workstation # [id number]
== END ==
LOC: RAD 09:19
PROVIDERS: ATTEND Physician Assistant
DX: K68.9 Other disorders of retroperitoneum (principal)
CPT/HCPCS: 74176